=== PATIENT | female | born 1985 | race Caucasian/White ===

== ENCOUNTER 2020-04-21 11:54 | Emergency (ER) | payer BC, OTHER ==
[~2020-04-21] VITALS: Ht 162.6 cm; Wt 83.9 kg
[2020-04-21 12:18] VITALS: BP 137/90
== END 2020-04-21 13:25 | disposition home or self-care (01) ==
LOC: ER 11:54
DX: J06.9 Acute upper respiratory infection, unspecified (principal); Z20.828 Contact with and (suspected) exposure to other viral communicable diseases
CPT/HCPCS: 36415; 71045; 87426; 87804